=== PATIENT | male | born 1950 | race Caucasian/White ===

== ENCOUNTER 2016-04-11 11:56 | Inpatient (IN) | payer OTHER, MEDICAID ==
[~2016-04-11] VITALS: Ht 170.2 cm; Wt 57.2 kg
[~2016-04-11 11:56] MED LIST: ASPIRIN325 M2 PO; OMEGA-3 FISH1200 MG PO
[2016-04-11 11:58] VITALS: BP 135/77
--- NOTE | 2016-04-11 13:07 | NUR ---
DR. EM AT BEDSIDE
[2016-04-11] MEDS ORDERED: NACL 0.9% 1,000 ML IV ONE (13:10)
--- NOTE | 2016-04-11 13:10 | NUR ---
PATIENT PRESENTS TO ED GENERALIZED WEAKNESS X 3 MONTHS; PER SON, PT HAS BEEN LOOSING WEIGHT AND NOT EATING WELL. PT STOPS DRINKING LAST JANUARY, DENIES N/V/D; SKIN IS PINK/WARM/DRY; AAOX4 WITH EVEN AND STEADY GAIT; LUNGS CLEAR BL; HR EVEN AND REGULAR; PT DENIES ANY FEVER, CP, SOB ; PATIENT STATES PAIN OF 10/10 AT THIS TIME ON HIS FEET; PATIENT POSITIONED FOR COMFORT; HOB ELEVATED; BEDRAILS UP X2; BED DOWN. HX OF HEART ATTACK Addendum: 04/11/16 at 1350 by [email or web address] NOTED ALSO PT JAUNDICE,PT AAO
--- NOTE | 2016-04-11 13:15 | NUR ---
XRAY AT BEDSIDE
--- NOTE | 2016-04-11 13:44 | NUR ---
PT WENT FOR CT VIA [facility] AAO, SON WITH THE PT.
--- NOTE | 2016-04-11 14:10 | NUR ---
PT BACK FROM CT PT AAO,IVF ONGOING, WELL TOLERATED.
--- NOTE | 2016-04-11 14:39 | NUR ---
VITAL SIGN OBTAINED, PT AAO, NO SOB NOTED, NO DISTRESS NOTED.
--- NOTE | 2016-04-11 15:30 | NUR ---
PT WANTED TO EAT AT THIS TIME, PER DR. EM NO FOOD AT THIS TIME, PT AND FAMILY AWARE.
--- NOTE | 2016-04-11 16:36 | NUR ---
PT EYES CLOSE, NO DISTRESS NOTED, PT VERBALIZED, I AM JUST TIRED, NO SOB NOTED, VITAL SIGN STABLE.
--- NOTE | 2016-04-11 17:17 | NUR ---
PT EATING DINNER AT THIS TIME
[2016-04-11] MEDS ORDERED: ONDANSETRON 4 MG/2 ML VIAL IVP PRN (18:10)
[2016-04-11] MEDS ORDERED: ALBUMIN HUMAN 25% 50 ML IV SCH (18:10)
[2016-04-11] MEDS ORDERED: LORazepam 2 MG/ML VIAL IVP PRN (18:10)
--- NOTE | 2016-04-11 18:15 | NUR ---
REPORT CALLED TO [facility] ON [facility] AND PATIENT READIED FOR TRANSPORT.
--- NOTE | 2016-04-11 18:15 | NUR ---
PATIENT TRANSPORTED TO ROOM VIA GURNEY IN STABLE CONDITION WITH ALL BELONGINGS FAMILY AT BEDSIDE.
--- NOTE | 2016-04-11 19:30 | NUR ---
PT RECEIVED AWAKE ALERT ORIENTED SPEAKS BOTH SINHALA AND CROATIAN DENIES ANY CHEST PAIN OR ANY PAIN OR DISCOMFORT,SKIN IS INTACT WITH DRYNESS,IV TO RT FOREARM G#22 IVF INFUSING WELL.PT HAS SOME GENERALIZED WEAKENESS AND IS CURRENTLY ON FALL PRECAUTIONS AND EDUCATED TO USE THE CALL LIGHT WHEN HE NEEDS ASSISTANCE.BED ALARM KEPT ON.PLAN OF CARE DISCUSSED WITH THE PATIENT.PT VERBALIZES UNDERSTANDING.CALL LIGHT WITHIN REACH WILL CONTINUE TO MONITOR.
[2016-04-11] MEDS ORDERED: cefTRIAXone 1,000 MG VIAL ONE (19:38)
[2016-04-11] MEDS: DEXT 5% /NACL 0.9% 1,000 ML IV SCH (19:38)
[2016-04-11 20:00] VITALS: BP 126/73
[2016-04-11] MEDS: PROPRANOLOL 20 MG TAB PO SCH (20:15)
--- NOTE | 2016-04-11 20:29 | NUR ---
Patient's Plan of Care was discussed and reviewed with LOCATE TECHNICIAN: DIANA SWENSON
--- NOTE | 2016-04-11 21:41 | NUR ---
PT RESTING IN BED IN NO DISTRESS AND NO COMPLAINS OF PAIN.WILL CONTINUE TO MONITOR.
--- NOTE | 2016-04-11 23:13 | NUR ---
PT SLEEPING COMFORTABLY IN BED IN NO DISTRESS WILL CONTINUE TO MONITOR.
[2016-04-12 00:13] VITALS: BP 121/69
--- NOTE | 2016-04-12 01:15 | NUR ---
PT IS CURRENTLY RESTING IN BED SLEEPING NO PAIN OR DISCOMFORT NOTED.CALL LIGHT WITHIN REACH BED ALARM ON.
[2016-04-12 04:00] VITALS: BP 112/61
--- NOTE | 2016-04-12 04:15 | NUR ---
PT SLEEPING IN BED QUIETLY IN NO DISTRESS WILL CONTINUE TO MONITOR.CALL LIGHT WITHIN REACH.
--- NOTE | 2016-04-12 06:38 | NUR ---
PT RESTING IN BED QUIETLY SLEEPING CALL LIGHT WITHIN REACH
--- NOTE | 2016-04-12 07:10 | NUR ---
ASSUMED CONTINUITY OF CARE. NO SIGNS AND SYMPTOMS OF ACUTE DISTRESS NOTICED. INITIAL ASSESSMENT DONE. KEEP COMFORTABLE ON BED. EXPLAINED DIAGNOSIS, PLAN OF CARE, PAIN MANAGEMENT TEACHING, USE OF CALL LIGHT/BED/TV/BATHROOM. VERBALIZED UNDERSTANDING. FALL PRECAUTION APPLIED. CALL LIGHT WITHIN REACH.
--- NOTE | 2016-04-12 07:15 | NUR ---
PT STABLE REPORT ENDORSED TO RATNA NICOLE.
[2016-04-12 08:00] VITALS: BP 127/71
[2016-04-12] MEDS: PENTOXIFYLLINE 400 MG TABER PO SCH ×3 (08:05→16:33)
[2016-04-12] MEDS: SPIRONOLACTONE 50 MG TAB PO SCH (08:51)
[2016-04-12] MEDS: PROPRANOLOL 20 MG TAB PO SCH ×2 (08:51→20:09)
[2016-04-12] MEDS: PANTOPRAZOLE 40 MG INJ VIAL IVP SCH (09:02)
[2016-04-12 12:00] VITALS: BP 133/75
[2016-04-12] MEDS: DEXT 5% /NACL 0.9% 1,000 ML IV SCH ×2 (12:10→22:46)
--- NOTE | 2016-04-12 14:50 | NUR ---
PAGED DR. HERBERT AND SPOKE TO DINH REGARDING PT. K LEVEL 3.3. LEFT MESSAGE AND CALL BACK NUMBER.
[2016-04-12 16:00] VITALS: BP 121/70
[2016-04-12] MEDS ORDERED: PHYTONADIONE 10 MG/ML AMP SUBQ SCH (16:00)
[2016-04-12] MEDS ORDERED: POTASSIUM CHLORIDE 10 MEQ TABER PO SCH (16:00)
--- NOTE | 2016-04-12 19:05 | NUR ---
BEDSIDE REPORT GIVEN TO TIFFANI VALDES -EVAN. IVF INFUSING WELL. IN STABLE CONDITION.
--- NOTE | 2016-04-12 19:10 | NUR ---
RECEIVED PT SLEEPING, EASILY AROUSABLE, AAOX4, DENIES ANY PAIN, VITAL SIGNS STABLE, VOIDED FREELY PER URINAL WITH 400 ML LIGHT CHRISTOPHER COLORED URINE, JAUNDICED WITH ABDOMEN SOFT AND SLIGHTLY DISTENDED, IVF INFUSING WELL, SAFETY MEASURES IN PLACE, CALL LIGHT WITHIN REACH.
[2016-04-12 20:00] VITALS: BP 139/82
--- NOTE | 2016-04-12 20:10 | NUR ---
PT AMBULATED TO BR WITH STEADY GAIT, COMPLAINING OF NAUSEA, MEDICATED PRN WITH ZOFRAN IVP, DUE INDERAL NOT GIVEN DUE TO DECREASE HEART RATE, NEEDS ATTENDED.
--- NOTE | 2016-04-12 22:25 | NUR ---
OFFERED TO PT TO TRANSFER TO ANOTHER SINCE ROOM MATE IS NOISY, PT STATED "NO IT'S [place]."
[2016-04-13] VITALS: BP 122/60
--- NOTE | 2016-04-13 00:32 | NUR ---
PT AMBULATED TO BR WITH STEADY GAIT, VERBALIZED BM WITH REGULAR SOFT STOOL MODERATE AMOUNT, DENIES ANY PAIN, MONITORED CLOSELY.
[2016-04-13] MEDS: DEXT 5% /NACL 0.9% 1,000 ML IV SCH ×2 (02:31→13:04)
--- NOTE | 2016-04-13 03:31 | NUR ---
PT AMBULATED TO BR, VERBALIZED HAD LOOSE BM MODERATE AMOUNT, INSTRUCTED TO COLLECT STOOL TO R/O C-DIFF THE NEXT TIME HE HAD A BM, VERBALIZED UNDERSTANDING, SPECIMEN CONTAINER PROVIDED, VITAL SIGNS STABLE, SB-SR ON TELE, DENIES CHEST PAIN, NO SOB NOTED, IVF INFUSING WELL, MONITORED CLOSELY.
[2016-04-13 04:00] VITALS: BP 134/72
--- NOTE | 2016-04-13 05:10 | NUR ---
PT WITH BM, SLIGHTLY LOOSE MUCOID CONSISTENCY, SMALL AMOUNT, NOT QUALIFIED FOR C-DIFF, PROVIDED ANOTHER CONTAINER FOR COLLECTION, PT MADE AWARE.
--- NOTE | 2016-04-13 07:05 | NUR ---
RECEIVED REPORT FROM DIAMOND SAW OPERATOR EVAN NIXON. PT IS SLEEPING, A/O X 4. SKIN INTACT. AMBULATORY. RFA 1V 22G PATENT AND INTACT. LBM 04/12/16. NO S/S OF ACUTE CARDIAC/RESPIRATORY DISTRESS/DISCOMFORT. SAFETY MEASURES IN PLACE, CALL LIGHT WITHIN REACH. WILL CONTINUE PLAN OF CARE, CONTINUE TO MONITOR.
--- NOTE | 2016-04-13 07:10 | NUR ---
PT SLEEPING, NO SIGNS OF DISTRESS, REPORT GIVEN TO EVAN CRUZ FOR CONTINUITY OF CARE.
[2016-04-13 07:58] VITALS: BP 120/69
[2016-04-13] MEDS: SPIRONOLACTONE 50 MG TAB PO SCH (08:52)
[2016-04-13] MEDS: PANTOPRAZOLE 40 MG INJ VIAL IVP SCH (08:53)
[2016-04-13] MEDS: PENTOXIFYLLINE 400 MG TABER PO SCH ×3 (08:53→17:08)
[2016-04-13] MEDS: PROPRANOLOL 20 MG TAB PO SCH ×2 (08:58→20:25)
--- NOTE | 2016-04-13 10:30 | NUR ---
PT AWAKE. NO S/S OF ACUTE DISTRESS OR DISCOMFORT. CALL LIGHT WITHIN REACH. WILL CONTINUE TO MONITOR.
--- NOTE | 2016-04-13 11:17 | NUR ---
PATIENT HAS BEEN SCREENED AND CATEGORIZED HIGH NUTRITION RISK. PATIENT WILL BE SEEN WITHIN 1-2 DAYS OF ADMISSION. 04/12/16-04/13/[address]
[2016-04-13 12:00] VITALS: BP 129/78
--- NOTE | 2016-04-13 13:00 | NUR ---
ADMINISTERED PO MEDS. PT TOLERATED WELL. PT EATING LUNCH. NO S/S OF ACUTE DISTRESS OR DISCOMFORT. CALL LIGHT WITHIN REACH. WILL CONTINUE TO MONITOR.
--- NOTE | 2016-04-13 14:52 | NUR ---
04/13/16 RD INITIAL ASSESSMENT COMPLETED PLEASE REFER TO NUTRITION ASSESSMENT UNDER CARE ACTIVITY FOR ESTIMATED NUTRITIONAL NEEDS. RD RECOMMENDATIONS: 1. CONTINUE REGULAR DIET TOLERATED PER MD 2. RD TO ADD HEALTH SHAKES TID FOR ADDITIONAL 900 KCAL AND 27 GM PROTEIN TO HELP PREVENT FURTHER WEIGHT LOSS 3. RD WILL F/U 3-5 DAYS; MODERATE RISK. SARITHA ALEXANDER RD
[2016-04-13 16:00] VITALS: BP 127/74
--- NOTE | 2016-04-13 17:00 | NUR ---
PT AWAKE, EATING DINNER. PT TOLERATED PO MEDS WELL. FAMILY AT BEDSIDE. NO S/S OF ACUTE DISTRESS OR DISCOMFORT. CALL LIGHT WITHIN REACH. WILL CONTINUE TO MONITOR.
[2016-04-13] MEDS ORDERED: PHYTONADIONE 10 MG/ML AMP SUBQ SCH (17:30)
[2016-04-13] MEDS ORDERED: POTASSIUM CHLORIDE 10 MEQ TABER PO SCH (18:00)
--- NOTE | 2016-04-13 19:30 | NUR ---
ENDORSED PLAN OF CARE TO NIGHT RN. PT REMAINS IN STABLE CONDITION.
--- NOTE | 2016-04-13 19:30 | NUR ---
RECEIVED PT IN STABLE CONDITION FROM EVAN CRUZ. NO SOB, NO SIGNS OF DISTRESS. PT IS AOX4, AMBULATORY. IV TO RT FA 22G PATENT, ASYMPTOMATIC, INTACT, IVF RUNNING. PT DENIES PAIN AT THIS TIME. VS STABLE ON ROOM AIR. SKIN INTACT. ABDOMEN SLIGHTLY DISTENDED. PLAN OF CARE DISCUSSED WITH PT. SAFETY MEASURES IN PLACE. CALL LIGHT WITHIN REACH. WILL CONTINUE TO MONITOR.
[2016-04-13 20:00] VITALS: BP 122/67
--- NOTE | 2016-04-13 20:25 | NUR ---
PT TOLERATED DUE MED WELL. NO SOB, NO SIGNS OF DISTRESS. IV SITE ASYMPTOMATIC, INTACT, PATENT, IVF RUNNING. PT DENIES PAIN AT THIS TIME. PLAN OF CARE DISCUSSED WITH PT. SAFETY MEASURES IN PLACE. CALL LIGHT WITHIN REACH. WILL CONTINUE TO MONITOR.
[2016-04-13] MEDS ORDERED: ALBUMIN HUMAN 25% 50 ML IV SCH (20:35)
[2016-04-13] MEDS: FUROSEMIDE 40 MG TAB PO SCH ×2 (21:52→22:41)
--- NOTE | 2016-04-13 22:41 | NUR ---
GAVE PT LASIX AND ALBUMIN IV PER MD ORDER. PT TOLERATED MEDS WELL. NO SOB, NO SIGNS OF DISTRESS. IV SITE ASYMPTOMATIC, INTACT, PATENT, IVF RUNNING. PT DENIES PAIN AT THIS TIME. PLAN OF CARE DISCUSSED WITH PT. SAFETY MEASURES IN PLACE. CALL LIGHT WITHIN REACH. WILL CONTINUE TO MONITOR.
[2016-04-14] VITALS: BP 128/73
--- NOTE | 2016-04-14 00:07 | NUR ---
VS STABLE ON ROOM AIR. NO SOB, NO SIGNS OF DISTRESS. IV SITE ASYMPTOMATIC, INTACT, PATENT, IVF RUNNING. PT DENIES PAIN AT THIS TIME. PLAN OF CARE DISCUSSED WITH PT. SAFETY MEASURES IN PLACE. CALL LIGHT WITHIN REACH. WILL CONTINUE TO MONITOR.
--- NOTE | 2016-04-14 02:07 | NUR ---
PT ASLEEP IN BED. NO SOB, NO SIGNS OF DISTRESS. IV SITE ASYMPTOMATIC, INTACT, PATENT, IVF RUNNING. SAFETY MEASURES IN PLACE. CALL LIGHT WITHIN REACH. WILL CONTINUE TO MONITOR.
[2016-04-14] MEDS: DEXT 5% /NACL 0.9% 1,000 ML IV SCH ×2 (03:27→11:33)
[2016-04-14 04:00] VITALS: BP 116/83
--- NOTE | 2016-04-14 07:03 | NUR ---
endorsed pt in stable condition to davie garza all needs have been met at this time.
--- NOTE | 2016-04-14 07:05 | NUR ---
RECEIVED REPORT FROM TOE POUNDER RN. PT IS A/O X 4. RFA IV INTACT AND PATENT. LBM 04/13/16 SOFT STOOL. NO S/S OF ACUTE CARDIAC/RESPIRATORY DISTRESS. SAFETY MEASURES IN PLACE, CALL LIGHT WITHIN REACH. WILL CONTINUE PLAN OF CARE AND CONTINUE TO MONITOR.
[2016-04-14 08:00] VITALS: BP 119/71
[2016-04-14] MEDS: PENTOXIFYLLINE 400 MG TABER PO SCH ×3 (08:51→18:10)
[2016-04-14] MEDS: SPIRONOLACTONE 50 MG TAB PO SCH (08:51)
[2016-04-14] MEDS: FUROSEMIDE 40 MG TAB PO SCH (08:51)
[2016-04-14] MEDS: PANTOPRAZOLE 40 MG INJ VIAL IVP SCH (08:52)
[2016-04-14] MEDS: PROPRANOLOL 20 MG TAB PO SCH ×2 (09:00→20:17)
--- NOTE | 2016-04-14 10:11 | NUR ---
PT RESTING WITH EYES CLOSED. NO S/S OF ACUTE DISTRESS OR DISCOMFORT. TOLERATED AM MEDS WELL. CALL LIGHT WITHIN REACH. WILL CONTINUE TO MONITOR.
[2016-04-14 12:00] VITALS: BP 122/68
--- NOTE | 2016-04-14 12:13 | NUR ---
PT RESTING IN BED. NO S/S OF ACUTE DISTRESS. PT DENIES PAIN. IV SITE PATENT AND INTACT. CALL LIGHT WITHIN REACH. WILL CONTINUE TO MONITOR.
[2016-04-14] MEDS ORDERED: POTASSIUM CHLORIDE 10 MEQ TABER PO SCH (13:00)
[2016-04-14] MEDS ORDERED: metroNIDAZOLE 500 MG TAB PO SCH (14:15)
[2016-04-14] MEDS ORDERED: ALBUMIN HUMAN 25% 100 ML IV SCH (14:30)
--- NOTE | 2016-04-14 15:55 | NUR ---
PT SLEEPING IN BED. NO S/S OF ACUTE DISTRESS. CALL LIGHT WITHIN REACH. WILL CONTINUE TO MONITOR.
[2016-04-14 16:00] VITALS: BP 122/69
--- NOTE | 2016-04-14 19:28 | NUR ---
RECEIVED PT IN STABLE CONDITION FROM EVAN MARVIN. NO SOB, NO SIGNS OF DISTRESS. PT IS AOX4, AMBULATORY. IV TO RT FA 22G PATENT, ASYMPTOMATIC, INTACT, IVF RUNNING. PT DENIES PAIN AT THIS TIME. VS STABLE ON ROOM AIR. SKIN INTACT. ABDOMEN SLIGHTLY DISTENDED. TOOK PT OFF OF CONTACT PRECAUTIONS SINCE C-DIFF RESULT IS NEGATIVE. PLAN OF CARE DISCUSSED WITH PT. SAFETY MEASURES IN PLACE. CALL LIGHT WITHIN REACH. WILL CONTINUE TO MONITOR.
--- NOTE | 2016-04-14 19:32 | NUR ---
ENDORSED PLAN OF CARE TO NIGHT RN. PT REMAINS IN STABLE CONDITION.
[2016-04-14 20:00] VITALS: BP 118/69
[2016-04-14] MEDS: metroNIDAZOLE 500 MG TAB PO SCH (20:17)
--- NOTE | 2016-04-14 20:17 | NUR ---
PT TOLERATED DUE MEDS WELL. NO SOB, NO SIGNS OF DISTRESS. IV SITE ASYMPTOMATIC, INTACT, PATENT, IVF RUNNING. PT DENIES PAIN AT THIS TIME. PT REQUESTED MILK, GAVE PT MILK. PLAN OF CARE DISCUSSED WITH PT. SAFETY MEASURES IN PLACE. CALL LIGHT WITHIN REACH. WILL CONTINUE TO MONITOR.
[2016-04-14] MEDS ORDERED: DEXTROSE 50% 50 ML SYR IVP PRN (21:20)
[2016-04-15] VITALS: BP 118/65
[2016-04-15 04:00] VITALS: BP 122/70
--- NOTE | 2016-04-15 04:00 | NUR ---
VS STABLE. NO SOB, NO SIGNS OF DISTRESS. IV SITE ASYMPTOMATIC, INTACT, PATENT, IVF RUNNING. PT DENIES PAIN AT THIS TIME. PLAN OF CARE DISCUSSED WITH PT. SAFETY MEASURES IN PLACE. CALL LIGHT WITHIN REACH. WILL CONTINUE TO MONITOR.
[2016-04-15] MEDS: DEXT 5% /NACL 0.9% 1,000 ML IV SCH (04:15)
[2016-04-15] MEDS: metroNIDAZOLE 500 MG TAB PO SCH ×2 (04:15→12:19)
[2016-04-15] MEDS: BLOOD GLUCOSE MONITORING 1 DEV DEV FS SCH ×3 (06:28→17:28)
--- NOTE | 2016-04-15 06:31 | NUR ---
PTS BLOOD SUGAR 414, PER MD ORDER PAGED KAHN SIGN PAINTER FOR MD HERBERT TO MAKE AWARE AND FOR ORDERS. WAITING FOR CALL BACK.
--- NOTE | 2016-04-15 06:34 | NUR ---
SPOKE WITH MD KAHN. MADE AWARE OF BLOOD SUGAR VALUE. STATED TO GIVE PT 20 UNITS OF NOVOLOG INSULIN.
[2016-04-15] MEDS: INSULIN ASPART SLIDING SCALE 100 UNITS/ML VIAL SUBQ PRN ×3 (06:38→17:46)
--- NOTE | 2016-04-15 06:38 | NUR ---
GAVE PT 20 UNITS OF INSULIN PER MD ORDER. PT ASYMPTOMATIC. VS STABLE. NO SOB, NO SIGNS OF DISTRESS. IV SITE ASYMPTOMATIC, INTACT, PATENT, IVF RUNNING. PT DENIES PAIN AT THIS TIME. PLAN OF CARE DISCUSSED WITH PT. SAFETY MEASURES IN PLACE. CALL LIGHT WITHIN REACH. WILL CONTINUE TO MONITOR.
--- NOTE | 2016-04-15 07:05 | NUR ---
ENDORSED PT IN STABLE CONDITION TO EVAN GUPTA. ALL NEEDS HAVE BEEN MET AT THIS TIME. Addendum: 04/15/16 at 0717 by Bhavana Dos Santos RN ENDORSED PT TO YON, AND EVAN CRUZ.
--- NOTE | 2016-04-15 07:06 | NUR ---
RECEIVED REPORT FROM HAND PRESSER RN. PT IS SLEEPING, A/O X 4, AMBULATORY. IV INTACT. NO S/S OF ACUTE CARDIAC/RESPIRATORY DISTRESS/DISCOMFORT. SAFETY MEASURES IN PLACE. FALL RISK PRECAUTIONS IN PLACE. CALL LIGHT WITHIN REACH. WILL CONTINUE PLAN OF CARE. WILL CONTINUE TO MONITOR.
[2016-04-15 08:00] VITALS: BP 113/61
[2016-04-15] MEDS: FUROSEMIDE 40 MG TAB PO SCH (08:54)
[2016-04-15] MEDS: PENTOXIFYLLINE 400 MG TABER PO SCH ×3 (08:54→17:22)
[2016-04-15] MEDS: SPIRONOLACTONE 50 MG TAB PO SCH (08:55)
[2016-04-15] MEDS: PANTOPRAZOLE 40 MG INJ VIAL IVP SCH (08:56)
[2016-04-15] MEDS: PROPRANOLOL 20 MG TAB PO SCH (08:57)
[2016-04-15] MEDS ORDERED: GLUCOPHAGE500 MG PO (09:40)
[2016-04-15] MEDS ORDERED: PENTOXIFYL XR400 MG PO (09:40)
[2016-04-15] MEDS ORDERED: FUROSEMIDE40 M1 PO (09:40)
[2016-04-15] MEDS ORDERED: ALDACTONE50 M1 PO (09:40)
[2016-04-15] MEDS ORDERED: INDERAL20 M1 PO (09:40)
--- NOTE | 2016-04-15 10:00 | NUR ---
PER DR HERBERT, HOLD DISCHARGE UNTIL PARACENTESIS IS COMPLETE.
--- NOTE | 2016-04-15 10:45 | NUR ---
PT IS RESTING WITH EYES CLOSED. NO S/S OF ACUTE DISTRESS OR DISCOMFORT. INFORMED PT OF US GUIDED PARACENTESIS, PT VERBALIZED UNDERSTANDING AND SIGNED CONSENT. CALL LIGHT WITHIN REACH. WILL CONTINUE TO MONITOR.
[2016-04-15 12:00] VITALS: BP 113/66
--- NOTE | 2016-04-15 12:52 | NUR ---
PT RESTING, WITH EYES CLOSED. PT IS AWARE HE IS NPO DUE TO US PARACENTESIS. PT WILL EAT HIS LUNCH TRAY AFTER PROCEDURE. PT TOLERATED HIS MEDS WELL. NO S/S OF ACUTE DISTRESS OR DISCOMFORT. CALL LIGHT WITHIN REACH. WILL CONTINUE TO MONITOR.
--- NOTE | 2016-04-15 13:38 | NUR ---
CM NOTE INITIAL REVIEW FAXED TO [facility] / FAX# [phone], C: [phone]
--- NOTE | 2016-04-15 13:54 | NUR ---
PT AWAKE, EATING LUNCH, A/O X 4. NO S/S OF ACUTE DISTRESS OR DISCOMFORT. CALL LIGHT WITHIN REACH. WILL CONTINUE TO MONITOR.
[2016-04-15 15:45] VITALS: BP 108/64
--- NOTE | 2016-04-15 15:45 | NUR ---
US GUIDED PARACENTESIS COMPLETE. PT TOLERATED PROCEDURE WELL. VS STABLE. 1850ML ABD FLUID TAKEN OUT. MADE AWARE.
[2016-04-15] MEDS ORDERED: POTASSIUM CHLORIDE 10 MEQ TABER PO SCH (17:00)
--- NOTE | 2016-04-15 18:45 | NUR ---
DISCHARGE INSTRUCTIONS PROVIDED TO PT AND SON, VERBALIZED UNDERSTANDING. PT SIGNED DISCHARGE PAPERWORK, HE WAS PROVIDED A COPY. ARM BANDS REMOVED. IV REMOVED, INTACT. PT HAS NO S/S OF ACUTE DISTRESS OR DISCOMFORT. VS STABLE. PT IN STABLE CONDITION. WHEELCHAIRED PT TO FRONT LOBBY FOR FAMILY TO PICK HIM UP.
[2016-09-29] MEDS ORDERED: GLUCOPHAGE850 MG PO (10:53)
[2016-09-29] MEDS ORDERED: CULTURELLE10 Billion PO (10:53)
[2016-09-29] MEDS ORDERED: HUMALOG SL100 UNITS/ SUBQ (10:58)
[2016-09-29] MEDS ORDERED: ASPIRIN ADULT L81 M1 PO (10:58)
[2016-09-29] MEDS ORDERED: IPRATROPIUM BROM3 M1 IH (10:58)
[2016-09-29] MEDS ORDERED: PULMICORT0.25 MG/2 INH (10:58)
[2016-09-29] MEDS ORDERED: LEVEMIR100 U/ML SUBQ (10:58)
[2016-09-29] MEDS ORDERED: HUMULIN 70 U/ML10 ML SQ (10:58)
== END 2016-04-15 18:45 | disposition home or self-care (01) | DRG 441 ==
LOC: MED 11:56 → MTU 16:36
PROVIDERS: ADMIT Hospitalist; ATTEND Hospitalist
PROC: 0W9G3ZZ Drainage of Peritoneal Cavity, Percutaneous Approach (ICD-10-PCS; principal; 2016-04-15)
DX: K72.00 Acute and subacute hepatic failure without coma (principal); E41 Nutritional marasmus; K76.6 Portal hypertension; E87.1 Hypo-osmolality and hyponatremia; Z68.1 Body mass index [BMI] 19.9 or less, adult; E46 Unspecified protein-calorie malnutrition; D68.9 Coagulation defect, unspecified; K70.31 Alcoholic cirrhosis of liver with ascites; K70.9 Alcoholic liver disease, unspecified; E88.09 Other disorders of plasma-protein metabolism, not elsewhere classified; R19.7 Diarrhea, unspecified; D72.829 Elevated white blood cell count, unspecified; R62.7 Adult failure to thrive; I25.10 Atherosclerotic heart disease of native coronary artery without angina pectoris; E87.6 Hypokalemia; K81.9 Cholecystitis, unspecified; E11.9 Type 2 diabetes mellitus without complications; R74.0 Nonspecific elevation of levels of transaminase and lactic acid dehydrogenase [LDH]; F10.21 Alcohol dependence, in remission; I25.2 Old myocardial infarction; Z98.890 Other specified postprocedural states; Z79.82 Long term (current) use of aspirin; Z79.899 Other long term (current) drug therapy; Z87.891 Personal history of nicotine dependence

== ENCOUNTER 2016-09-26 19:24 | Inpatient (IN) | payer OTHER, MEDICAID ==
[~2016-09-26] VITALS: Ht 165.1 cm; Wt 48.5 kg
[~2016-09-26 19:24] MED LIST changes: +ASPI325T49 PO; -ASPIRIN325 M2 PO; +FURO40TA9 PO; +IND20 PO; +METF500T PO; -OMEGA-3 FISH1200 MG PO; +SPIR50TA PO; +[UNRECOGNIZED DRUG - CODE] PO
[2016-09-26 19:49] VITALS: BP 110/70
--- NOTE | 2016-09-26 20:09 | NUR ---
PT TAKEN TO BED 7
--- NOTE | 2016-09-26 20:19 | NUR ---
Dr. Child evaluating patient at bedside.
[2016-09-26] MEDS ORDERED: NACL 0.9% 1,000 ML IV ONE (20:30)
[2016-09-26] MEDS ORDERED: LIDOCAINE 1% 500 MG/50 ML VIAL INJ ONE (20:35)
--- NOTE | 2016-09-26 20:39 | NUR ---
PT TAKEN TO RADIOLOGY
--- NOTE | 2016-09-26 20:46 | NUR ---
BIB SISTER TO ED WITH NOT FEELING WELL, WEAKNESS, DIARRHEA, SOB, FOR 3 DAYS, CANT WALK. SKIN IS PINK/WARM/DRY; AAOX4 WITH UNSTEADY GAIT, LUNGS CLEAR BL; HR EVEN AND REGULAR; PT DENIES ANY FEVER, CP, SOB, OR COUGH AT THIS TIME; PATIENT STATES PAIN OF 9/10 AT THIS TIME; PATIENT POSITIONED FOR COMFORT; HOB ELEVATED; BEDRAILS UP X2; BED DOWN. PT LOOKS VERY PALE AND JAUNDICED
--- NOTE | 2016-09-26 20:55 | NUR ---
PT RETURN FROM RADIOLOGY
[2016-09-26] MEDS ORDERED: PIPERACILLIN/TAZOBACTAM 3.375 GM in DEXTROSE 5% 50 ML IV ONE (21:25)
[2016-09-26 21:29] LABS: APPEARANCE,URINE CLEAR (CLEAR); BILIRUBIN,URINE NEGATIVE (NEGATIVE); BLOOD, URINE NEGATIVE (NEGATIVE); COLOR,URINE YELLOW (YELLOW); LEUKOCYTE ESTERASE ,URINE NEGATIVE (NEGATIVE); NITRITE, URINE NEGATIVE (NEGATIVE); PROTEIN,URINE NEGATIVE (NEGATIVE); UGLUCOSE 3+ (NEGATIVE); UROBILINOGEN,URINE 0.2 EU/dL (0.2 - 1)
[2016-09-26 21:30] LABS: BASOPHILS # (AUTO) 0.5 K/uL (0.00-0.22); BASOPHILS % (AUTO) 4.4 % (0.0-2.0); EOSINOPHILS # (AUTO) 0.2 K/uL (0-0.4); EOSINOPHILS % (AUTO) 1.8 % (0.0-4.0); HEMATOCRIT 39.7 % (36-52); HEMOGLOBIN 13.5 g/dL (12.0-18.0); LYMPHOCYTES # (AUTO) 3.1 K/uL (2.0-11.5); LYMPHOCYTES % (AUTO) 28.5 % (20.5-51.1); MEAN CORPUSCULAR HEMOGLOBIN 32 pg (27-31); MEAN CORPUSCULAR HGB CONC 34 g/dL (33-37); MEAN CORPUSCULAR VOLUME 93 fL (80-94); MONOCYTES # (AUTO) 1.1 K/uL (0.8-1.0); MONOCYTES % (AUTO) 10.4 % (1.7-9.3); NEUTROPHILS # (AUTO) 6.1 K/uL (1.8-7.7); NEUTROPHILS % (AUTO) 54.9 % (42.2-75.2); PLATELET COUNT (AUTO) 191 K/uL (140-450); RED BLOOD CELL COUNT(AUTO) 4.28 MIL/uL (4.20-6.10); RED CELL DISTRIBUTION WIDTH 13.3 % (11.6-13.7)
[2016-09-26 21:32] LABS: BACTERIA,URINE RARE /HPF (None Seen); RBC,URINE 0-3 /HPF (0-5); SQUAMOUS EPITHELIAL CELL,UR None Seen /LPF (0-3 (FEW)); WBC,URINE 0-3 /HPF (0-5)
[2016-09-26 21:36] LABS: INR 1.2 (0.8-1.2); PARTIAL THROMBOPLASTIN TIME 30.5 secs (22-35.6); PROTHROMBIN TIME 12.4 secs (10.8-13.4)
[2016-09-26 21:40] LABS: LACTIC ACID 1.7 mmol/L (0.4-2.0)
[2016-09-26] MEDS ORDERED: PIPERACILLIN/TAZOBACTAM 3.375 GM VIAL IV ONE (21:45)
[2016-09-26 21:46] LABS: ANION GAP 7.5 (8-16); CALCIUM 7.8 mg/dL (8.5-10.1); CARBON DIOXIDE 30.3 mmol/L (21-32); POTASSIUM 3.8 mmol/L (3.5-5.1); TOTAL BILIRUBIN 0.7 mg/dL (0.0-1.0); TOTAL PROTEIN, SERUM 9.7 g/dL (6.4-8.2)
[2016-09-26] MEDS ORDERED: INSULIN HUMAN REGULAR 100 UNITS/ML 10 ML VIAL IVP ONE (21:50)
--- NOTE | 2016-09-26 21:56 | NUR ---
PT EATING HERNANDO AT THIS TIME
--- NOTE | 2016-09-26 22:07 | NUR ---
PT FINISHED EATING HIS SANDWHICH, PT AAO, NO DISTRESS NOTED, NOTED, DRYNESS ON BOTH LOWER EXTREMITIES, SOCKS APPLIED,IVF ONGOING WELL TOLERATED.
[2016-09-26] MEDS: NACL 0.9% 1,000 ML IV SCH (23:03)
[2016-09-26] MEDS ORDERED: MORPHINE SULFATE 2 MG/ML SYR IVP PRN (23:05)
[2016-09-26] MEDS ORDERED: ACETAMINOPHEN 325 MG TAB PO PRN (23:05)
[2016-09-26] MEDS ORDERED: ONDANSETRON 4 MG/2 ML VIAL IM/IVP PRN (23:05)
[2016-09-26] MEDS ORDERED: DOCUSATE SODIUM 100 MG GELCAP PO PRN (23:05)
[2016-09-26] MEDS ORDERED: HYDROcodone/APAP 7.5/325 MG 1 TAB PO PRN (23:05)
[2016-09-26] MEDS ORDERED: ALBUTEROL SULFATE/IPRATROPIU 3 ML SOL IH PRN (23:10)
[2016-09-26] MEDS ORDERED: DEXTROSE 50% 50 ML SYR IVP PRN (23:10)
--- NOTE | 2016-09-26 23:15 | NUR ---
PATIENT ADMITTED WITH ASPIRATION PNA.PATIENT IS AWAKE ALERT ORIENTED SAMI SPEAKING.SKIN IS INTACT BUT VERY DRY ESPECIALLY TO THE FEET AND LOWER LEGS AND ALSO ON HIS BUTTOCKS BUT OTHERWISE SKIN IS INTACT.PATIENT IS ABLE TO TURN AND REPOSITION BUT STATES,"I FEEL VERY WEAK."PLAN OF CARE DISCUSSED WITH THE PATIENT.VISITING HOURS DISCSSED WITH THE PATIENT AND HIS FAMILY.CALL LIGHT WITHIN REACH WILL CONTINUE TO MONITOR.
--- NOTE | 2016-09-26 23:35 | NUR ---
PT AWAKE AND ALERT, HR 70, RESP RATE 20, SAT 98% ON ROOM AIR, BREATH SOUNDS CLEAR BILATERALLY. NO DISTRESS/SOB/WHEEZING NOTED AT THIS TIME. NO INDICATION FOR HHN PRN TX. PT ALSO INSTRUCTED ON USE OF INCENTIVE SPIROMETRY, PT WAS ABLE TO ACHIEVE 1500 ML X 10 BREATHS.
--- NOTE | 2016-09-26 23:40 | NUR ---
Patient's Plan of Care was discussed and reviewed with IDENTIFICATION PRINTING MACHINE SETTER: DIANA SWENSON
[2016-09-26] MEDS ORDERED: methylPREDNISolone SS 125 MG/2 ML VIAL IVP SCH (23:45)
--- NOTE | 2016-09-26 23:57 | NUR ---
Patient will be admitted to care of . Admited to TELE. Will go to room 112A. Belongings list completed. Report to DIANA GORDON.
[2016-09-27] VITALS: BP 117/87
[2016-09-27] MEDS: NACL 0.9% 1,000 ML IV SCH ×2 (00:30→09:45)
--- NOTE | 2016-09-27 00:30 | NUR ---
PATIENT STABLE RESTING IN BD NEEDS MET WILL CONTINUE TO MONITOR.CALL LIGHT WITHIN REACH.
[2016-09-27] MEDS ORDERED: ALBUTEROL SULFATE/IPRATROPIU 3 ML SOL IH SCH (03:00)
[2016-09-27] MEDS ORDERED: ALBUTEROL 0.083% 2.5 MG/3 ML NEBU INH SCH (03:00)
[2016-09-27] MEDS ORDERED: IPRATROPIUM 0.02% 0.5 MG/2.5 ML NEBU INH SCH (03:00)
--- NOTE | 2016-09-27 03:32 | NUR ---
PATIENT STABLE RESTING IN BED IN NO DISTRESS.NO COMPLAINS OF PAIN.IVF INFUSING WELL WILL CONTINUE TO MONITOR.
[2016-09-27 04:05] VITALS: BP 122/63
[2016-09-27] MEDS ORDERED: PIPERACILLIN/TAZOBACTAM 3.375 GM VIAL IV ONE (05:03)
[2016-09-27 05:54] LABS: BASOPHILS # (AUTO) 0.2 K/uL (0.00-0.22); BASOPHILS % (AUTO) 2.2 % (0.0-2.0); EOSINOPHILS # (AUTO) 0.1 K/uL (0-0.4); EOSINOPHILS % (AUTO) 1.3 % (0.0-4.0); HEMATOCRIT 40.2 % (36-52); HEMOGLOBIN 13.3 g/dL (12.0-18.0); LYMPHOCYTES # (AUTO) 1.3 K/uL (2.0-11.5); LYMPHOCYTES % (AUTO) 13.5 % (20.5-51.1); MEAN CORPUSCULAR HEMOGLOBIN 31 pg (27-31); MEAN CORPUSCULAR HGB CONC 33 g/dL (33-37); MEAN CORPUSCULAR VOLUME 95 fL (80-94); MONOCYTES # (AUTO) 0.1 K/uL (0.8-1.0); MONOCYTES % (AUTO) 1.1 % (1.7-9.3); NEUTROPHILS # (AUTO) 7.6 K/uL (1.8-7.7); NEUTROPHILS % (AUTO) 81.9 % (42.2-75.2); PLATELET COUNT (AUTO) 185 K/uL (140-450); RED BLOOD CELL COUNT(AUTO) 4.25 MIL/uL (4.20-6.10); RED CELL DISTRIBUTION WIDTH 12.8 % (11.6-13.7)
[2016-09-27] MEDS ORDERED: PIPERACILLIN/TAZOBACTAM 3.375 GM in DEXTROSE 5% 50 ML IV SCH (06:00)
--- NOTE | 2016-09-27 06:23 | NUR ---
MD FAGAN CALLED BACK AND I INFORMED HIM OF PATIENT'S ELEVATED SUGAR OF 422. SAID TO GIVE 10 UNITS OF HUMULOG INSULIN AND TO ENDORSE TO AM SHIFT TO FOLLOW UP WITH INCOMING RESIDENT.
[2016-09-27] MEDS: BLOOD GLUCOSE MONITORING 1 DEV DEV FS SCH ×4 (06:29→20:49)
[2016-09-27 06:31] LABS: ANION GAP 8.5 (8-16); CALCIUM 7.7 mg/dL (8.5-10.1); CARBON DIOXIDE 28.5 mmol/L (21-32); CREATININE 0.7 mg/dL (0.7-1.3)
[2016-09-27 06:32] LABS: CHOL/HDL RATIO 2.6 (1-4.5); FREE T4 (FREE THYROXINE) 1.28 ng/dL (0.76-1.46); MAGNESIUM 1.7 mg/dL (1.8-2.4); THYROID STIMULATING HORMONE 2.83 uIU/mL (0.34-3.74)
--- NOTE | 2016-09-27 07:05 | NUR ---
PATIENT HAS BEEN SCREENED AND CATEGORIZED HIGH NUTRITION RISK. PATIENT WILL BE SEEN WITHIN 1-2 DAYS OF ADMISSION. 09/26/16-09/27/16 MARY KANG MS, RDN
--- NOTE | 2016-09-27 07:12 | NUR ---
RECEIVED PT IN BED. AWAKE, ALERT ORIENTEDX4. NO SOB NOTED AT THIS TIME. DENIES ANY PAIN OR DISCOMFORT AT THIS TIME. POSITIVE BOWEL SOUNDS NOTED ON FOUR QUADRANTS. PT UNSTEADY WITH AMBULATION. PT CONTINENT, DENIES ANY DISCOMFORT WITH BLADDER OR BOWEL ELIMINATION AT THIS TIME. URINAL AND BEDPAN AT BEDSIDE. SKIN INTACT. SAFETY PRECAUTION IN PLACE. CALL LIGHT WITHIN REACH.
[2016-09-27 07:13] LABS: WHITE BLOOD COUNT (AUTO) 9.3 K/uL (4.8-10.8)
--- NOTE | 2016-09-27 07:32 | NUR ---
PATIENT STABLE REPORT ENDORSED TO EVAN KHALIL AT BEDSIDE SHE WILL RESUME CARE OF THE PATIENT.
[2016-09-27] MEDS: BUDESONIDE 0.25 MG/2 ML NEBU INH SCH ×2 (07:33→19:15)
[2016-09-27] MEDS: ALBUTEROL SULFATE/IPRATROPIU 3 ML SOL IH SCH ×4 (07:34→19:15)
--- NOTE | 2016-09-27 07:47 | NUR ---
TOLERATED INCENTIVE SPIROMETRY PROCEDURE WELL WITHOUT INCIDENT ENCOURAGED PATIENT WITH ACKNOWLEDGEMENT TO USE EVERY TWO HOURS WHILE AWAKE
[2016-09-27] MEDS: methylPREDNISolone SS 125 MG/2 ML VIAL IVP SCH ×2 (07:54→15:19)
[2016-09-27 08:00] VITALS: BP 106/59
[2016-09-27 08:18] LABS: AMPHETAMINE, URINE NEG. ng/ml (NEG <=1000); BARBITURATE, URINE NEG. ng/ml (NEG <=200); BENZODIAZEPINE, URINE NEG. ng/mL (NEG <=200); CANNABINOID, URINE NEG. ng/mL (NEG <=50); COCAINE, URINE NEG. ng/mL (NEG <=300); OPIATE, URINE NEG. ng/mL (NEG <=2000); PHENCYCLIDINE SCREEN,URINE NEG. ng/mL (NEG <=25)
--- NOTE | 2016-09-27 09:08 | NUR ---
PATIENT WILL BE RESCREENED WITHIN 1-2 DAYS OF ADMISSION. NOT ENOUGH INFORMATION AVAILABLE AT THIS TIME. 09/27/16-09/28/16 MARY KANG MS, RDN
--- NOTE | 2016-09-27 09:25 | NUR ---
DR. BROOKS, CAME TO SEE PT AND MADE AWARE OF MG LEVEL 1.7 AND NA 129. AND MADE AWARE THAT PT IS DIABETIC AND NEEDS TO GET AN ORDER FOR DIET.
[2016-09-27] MEDS ORDERED: MAG SULF 2000 MG/WATER PREMIX 50 ML IV ONE (09:30)
[2016-09-27 12:00] VITALS: BP 126/69
[2016-09-27] MEDS ORDERED: INSULIN LISPRO 100 UNITS/ML VIAL SUBQ PRN (12:10)
--- NOTE | 2016-09-27 12:16 | NUR ---
DR. BROOKS MADE AWARE OF LATEST BLOOD SUGAR READING OF PT 551. WITH ORDERS MADE AND CARRIED OUT
--- NOTE | 2016-09-27 12:19 | NUR ---
PATIENT HAS BEEN RE-SCREENED AND CATEGORIZED HIGH NUTRITION RISK. PATIENT WILL BE SEEN WITHIN 1-2 DAYS OF ADMISSION. 09/26/16-09/27/16 MARY KANG MS, RDN
[2016-09-27] MEDS: PIPER/TAZO 3.375GM/D5W PREMIX 50 ML IV SCH ×2 (12:22→17:22)
[2016-09-27] MEDS: INSULIN LISPRO SLIDING SCALE 100 UNITS/ML VIAL SUBQ PRN ×3 (12:36→21:06)
--- NOTE | 2016-09-27 12:44 | NUR ---
09/27/16 RD INITIAL ASSESSMENT COMPLETED PLEASE REFER TO NUTRITION ASSESSMENT UNDER CARE ACTIVITY FOR ESTIMATED NUTRITIONAL NEEDS. RD RECOMMENDATIONS: 1. CONTINUE CURRENT DIET TOLERATED. 2. RDN TO PROVIDE DIABETIC HEALTH SHAKE WITH MEALS TID TO HELP MEET NEEDS D/T UNDERWT FOR AGE STATUS (BMI < 18.4 KG/M2; PT WITH BMI OF 17.8 KG/M2). 3. RD WILL F/U 3-5 DAYS; MODERATE RISK. MARY KANG MS, RDN
--- NOTE | 2016-09-27 13:26 | NUR ---
NEW INCENTIVE SPIROMETRY ORDER TODAY AT 1319 ORIGINAL ORDER ON 09/26/16 AT 2310 INITIAL AND FOLLOW UP PERFORMED SEWAGE RETICULATION DRAFTING OFFICER TO RE-INSTRUCT PATIENT
[2016-09-27] MEDS ORDERED: metFORMIN 500 MG TAB PO SCH (14:10)
[2016-09-27] MEDS: metFORMIN 500 MG TAB PO SCH ×2 (14:12→16:43)
[2016-09-27 16:00] VITALS: BP 139/77
--- NOTE | 2016-09-27 19:20 | NUR ---
PT KEPT CLEAN, DRY AND COMFORTABLE, NEEDS ATTENDED. ENDORSED TO NEXT SHIFT ON STABLE CONDITION FOR CONTINUITY OF CARE.
--- NOTE | 2016-09-27 19:21 | NUR ---
PATIENT IS CURRENTLY RESTING IN BED AWAKE ALERT ORIENTED DENIES PAIN AND DENIES ANY SOB AT THIS TIME.IVF INFUSING WELL IV SITE PATENT.PATIENT USED THE BEDSIDE COMMODE AND HAD A MODERATE SOFT BROWN STOOL BEDSIDE COMMODE WAS CLEANED.PATIENT IS ALSO VOIDING WELL IN THE URINAL.PATIENT CONTINUES TO BE ON FALL AND SAFETY PRECAUTIONS.EXPLAINED THAT HE NEEDS TO CALL FOR ASSISTANCE.PATIENT VERBALIZES UNDERSTANDING TO CALL WHEN HE NEEDS TO USE THE BEDSIDE COMMODE.BED ALARM ON.WILL CONTINUE TO MONITOR.
--- NOTE | 2016-09-27 19:25 | NUR ---
Patient's Plan of Care was discussed and reviewed with PRESSROOM FOREMAN: DIANA SWENSON
[2016-09-27 20:00] VITALS: BP 111/58
[2016-09-27] MEDS: LACTULOSE 20 GM/30 ML UDC PO SCH (20:50)
--- NOTE | 2016-09-27 20:51 | NUR ---
PATIENT BLOOD SUGAR CHECKED CURRENTLY READING CRITICALLY HIGH I CHECKED HIS BLOOD SUGAR WITH ANOTHER BLOOD SUGAR MACHINE AND ITS 572 MD HENRY [employer] CALLED AND I LEFT MESSAGE WITH JAYLEN FROM [employer] SHE SAID MD RIDER IS JUDGE CLERK JENNA AND SHE WILL PAGE.
--- NOTE | 2016-09-27 21:10 | NUR ---
MD RIDER CALLED BACK AND I INFORMED HIM THAT PATIENT BLOOD SUGAR READ CRITICALLY HIGH AND THEN I RECHECKED IT WITH ANOTHER BLOOD SUGAR MACHINE AND IT WAS 572 I ALSO INFORMED HIM THAT PATIENT IS ASYMPTOMATIC AND IS AWAKE AND VERY ALERT.MD RIDER SAID TO CONTINUE TO FOLLOW THE HUMALOG INSULIN SLIDING SCALE FOR BS GREATER THAN 401 AND MD RIDER SAID HE WILL LET THE RESIDENTS KNOW SO THEY CAN ORDER ANOTHER LONG ACTING INSULIN FOR THE PATIENT. SAID HE WILL TELL RESIDENTS TO PUT THE ORDERS IN.
[2016-09-28 00:14] VITALS: BP 123/70
--- NOTE | 2016-09-28 00:28 | NUR ---
I MADE ROUNDS AND RECHECKED PATIENT BLOOD SUGAR WITH ONE OF THE GLUCOMETER IT READS CRITICALLY HIGH ABOVE 600 SO I CHECKED IT AGAIN WITH ANOTHER GLUCOMETER AND I GOT A READING OF 451 PATIENT IS ASYMPTOMATIC AT THIS TIME.KAMRON FOUNTAIN MD.
--- NOTE | 2016-09-28 00:31 | NUR ---
I CALLED TIFFANIE AND MD RIDER CONTINUES TO BE NAIL STICKER FOR LINDA HE HAS BEEN PAGED BY [employer]. WILL WAIT FOR HIS CALL BACK.
[2016-09-28] MEDS: PIPER/TAZO 3.375GM/D5W PREMIX 50 ML IV SCH ×5 (00:33→23:47)
[2016-09-28] MEDS: methylPREDNISolone SS 125 MG/2 ML VIAL IVP SCH (00:33)
--- NOTE | 2016-09-28 01:05 | NUR ---
NO CALL BACK YET FROM MD RIDER SO I CALLED [employer] AGAIN I SPOKE TO JAYLEN AND SHE WILL PAGE AGAIN.WILL CONTINUE TO MONITOR THE PATIENT.
--- NOTE | 2016-09-28 01:35 | NUR ---
MD RIDER DIDN'T CALL BACK BUT IS CURRENTLY SLEEPING IN BED ASYMPTOMATIC AND BS TRENDED DOWN.WILL CONTINUE TO MONITOR.WILL CHECK THIS MORNING BLOOD SUGAR.
--- NOTE | 2016-09-28 02:40 | NUR ---
PATIENT IS SLEEPING COMFORTABLY IN BED.
[2016-09-28] MEDS: NACL 0.9% 1,000 ML IV SCH ×2 (04:43→17:54)
[2016-09-28 04:52] VITALS: BP 139/71
--- NOTE | 2016-09-28 04:55 | NUR ---
PATIENT SLEEPING IN BED IN NO DISTRESS NO COMPLAINS OF PAIN AT THIS TIME.IVF INFUSING WELL WILL CONTINUE TO MONITOR.CALL LIGHT WITHIN REACH.
[2016-09-28 05:47] LABS: HEMATOCRIT 38.8 % (36-52); HEMOGLOBIN 12.8 g/dL (12.0-18.0); MEAN CORPUSCULAR HEMOGLOBIN 32 pg (27-31); MEAN CORPUSCULAR HGB CONC 33 g/dL (33-37); MEAN CORPUSCULAR VOLUME 95 fL (80-94); PLATELET COUNT (AUTO) 194 K/uL (140-450); RED BLOOD CELL COUNT(AUTO) 4.07 MIL/uL (4.20-6.10); RED CELL DISTRIBUTION WIDTH 13.1 % (11.6-13.7); WHITE BLOOD COUNT (AUTO) 18.3 K/uL (4.8-10.8)
--- NOTE | 2016-09-28 06:05 | NUR ---
NOTED IV ON LT HAND INFILTRATED, STARTED NEW IV ON LT FOREARM, 20G, ZOSYN INFUSING WELL.
[2016-09-28] MEDS: BLOOD GLUCOSE MONITORING 1 DEV DEV FS SCH ×4 (06:09→20:55)
[2016-09-28] MEDS: INSULIN LISPRO SLIDING SCALE 100 UNITS/ML VIAL SUBQ PRN ×4 (06:13→20:58)
[2016-09-28 06:14] LABS: ALBUMIN 1.8 g/dL (3.4-5.0); ANION GAP 10.6 (8-16); CALCIUM 7.6 mg/dL (8.5-10.1); CARBON DIOXIDE 27.9 mmol/L (21-32); CREATININE 0.8 mg/dL (0.7-1.3); MAGNESIUM 1.9 mg/dL (1.8-2.4); POTASSIUM 4.5 mmol/L (3.5-5.1); TOTAL BILIRUBIN 0.7 mg/dL (0.0-1.0); TOTAL PROTEIN, SERUM 8.6 g/dL (6.4-8.2)
--- NOTE | 2016-09-28 06:26 | NUR ---
RESIDENT HAY CRAWFORD WAS INFORMED OF PATIENTS BLOOD SUGARS BEING ELEVATED AND ALSO INFORMED THAT I TRIED TO NOTIFY MD RIDER BUT HE NEVER CALLED ME BACK,I INFORMED HER THAT PATIENT WAS ASYMPTOMATIC THROUGHT THE NIGHT AND EVEN THOUGH HER BLOOD SUGAR WAS HIGH IT WAS TRENDING DOWN.
[2016-09-28 06:32] LABS: BAND % (MANUAL) 8 % (0-8); LYMPHOCYTES % (MANUAL) 6 % (20-46); MONOCYTES % (MANUAL) 4 % (5-12); NEUTROPHILS % (MANUAL) 82 (43-65)
[2016-09-28] MEDS: ALBUTEROL SULFATE/IPRATROPIU 3 ML SOL IH SCH ×4 (07:19→19:38)
[2016-09-28] MEDS: BUDESONIDE 0.25 MG/2 ML NEBU INH SCH ×2 (07:19→19:38)
--- NOTE | 2016-09-28 07:25 | NUR ---
RECEIVED PT IN BED. AWAKE. ALERT ORIENTED X4. NO SOB NOTED. DENIES ANY PAIN OR DISCOMFORT AT THIS TIME. POSITIVE BOWEL SOUNDS NOTED ON FOUR QUADRANTS. PT WITH BEDSIDE COMMODE. DENIES ANY PROBLEM WITH BOWEL OR BLADDER ELIMINATION AT THIS TIME. SAFETY PRECAUTION IN PLACE. CALL LIGHT WITHIN REACH.
--- NOTE | 2016-09-28 07:29 | NUR ---
PATIENT IS STABLE CURRENTLY RESTING IN BED REPORT ENDORSED TO EVAN KHALIL AT BEDSIDE. SHE WILL RESUME CARE OF THE PATIENT.
[2016-09-28 08:00] VITALS: BP 114/62
[2016-09-28] MEDS ORDERED: metFORMIN 500 MG TAB PO SCH (08:00)
[2016-09-28] MEDS: ASPIRIN 81 MG TAB.CHEW PO SCH (08:31)
[2016-09-28] MEDS: LACTULOSE 20 GM/30 ML UDC PO SCH ×2 (08:31→21:07)
[2016-09-28] MEDS: metFORMIN 500 MG TAB PO SCH (08:31)
[2016-09-28] MEDS: methylPREDNISolone SS 40 MG/ML VIAL IVP SCH ×2 (08:31→15:17)
[2016-09-28] MEDS: LACTOBACILLUS RHAMNOSUS GG 1 EACH CAP PO SCH (08:31)
[2016-09-28] MEDS ORDERED: INSULIN LISPRO SLIDING SCALE 100 UNITS/ML VIAL SUBQ PRN (09:20)
[2016-09-28] MEDS ORDERED: DEXTROSE 50% 50 ML SYR IVP PRN (09:20)
--- NOTE | 2016-09-28 09:29 | NUR ---
DR. BROOKS MADE AWARE OF ALBUMIN LOW AT 1.8, AND NA 133.
--- NOTE | 2016-09-28 10:12 | NUR ---
PHYSICAL THERAPIST CAME TO SEE PT.
[2016-09-28 10:24] LABS: T3 UPTAKE 32 % (24-39); T4 (THYROXINE) 5.3 ug/dL (4.5-12.0)
--- NOTE | 2016-09-28 10:26 | NUR ---
FAXED INITIAL REVIEW TO [facility] [phone] PHONE [phone] TRACKING #[id number]
[2016-09-28 12:00] VITALS: BP 131/75
--- NOTE | 2016-09-28 12:00 | NUR ---
LATEST BLOOD SUGAR READING PER GLUCOMETER WAS >600. INSULIN HUMOLOG 12 UNITS WAS GIVEN ORDERED FOR BS >400. WILL LET DR. BROOKS KNOW OF LATEST BLOOD SUGAR. PT IS NOT SHOWING ANY SIGNS AND SYMPTOMS OF HYPERGLYCEMIA. NO SOB, DENIES ANY PAIN OR DISCOMFORT AT THIS TIME.
--- NOTE | 2016-09-28 13:11 | NUR ---
DR. BROOKS MADE AWARE OF THE HIGH BLOOD SUGAR READING OF PT. HE SAID HE WILL GIVE AN ORDER.
[2016-09-28] MEDS ORDERED: INSULIN LISPRO 100 UNITS/ML VIAL SUBQ SCH (13:26)
[2016-09-28] MEDS: INSULIN DETEMIR 100 UNITS/ML 10 ML VIAL SUBQ SCH (13:29)
--- NOTE | 2016-09-28 13:51 | NUR ---
SPOKE WITH CHERYL FROM [facility] [phone]. I GAVE HIM VERBAL REPORT. I SAID I HAD THE PT EVAL AND I FAXED HIM THE EVAL. HE SAID IF PATIENT WILL NEED SNF, TRY [facility] [phone] OR [facility]. I GAVE HIM THE PHONE NUMBER FOR THE RESIDENT FOR TO DR. WOODARD.
[2016-09-28 16:00] VITALS: BP 120/72
[2016-09-28] MEDS: metFORMIN 850 MG TAB PO SCH (16:56)
--- NOTE | 2016-09-28 19:35 | NUR ---
PT KEPT CLEAN, DRY AND COMFORTABLE. NEEDS ATTENDED. ENDORSED TO NEXT SHIFT ON STABLE CONDITION FOR CONTINUITY OF CARE. DENIES ANY DISCOMFORT AT THIS TIME.
--- NOTE | 2016-09-28 19:36 | NUR ---
RECEIVED PT FROM REMI RN PT [place] SPEAKER AAOX4 AMBULATES WITH; MANDOL[employer] REPAIR PERSON IV ON LEFT FA INFUSING WELL ON TELEMETRY SR DENIES ANY PAIN AT THIS TIME INITIAL ASSESSMENT DONE
[2016-09-28 20:00] VITALS: BP 133/69
[2016-09-28] MEDS: INSULIN NPH HUM/REG INSULIN HM 100 UNIT/ML 10 ML VIAL SQ SCH (21:01)
--- NOTE | 2016-09-28 21:30 | NUR ---
BLOOD SUGAR TEST 387 WAS COVERAGE PROTOCOL
[2016-09-29 00:01] VITALS: BP 145/84
--- NOTE | 2016-09-29 00:48 | NUR ---
PT SLEEPING WELL NOT DISTRESS NOTED ON TELEMETRY SR REPOSITIONED Q2H
[2016-09-29 04:00] VITALS: BP 143/71
--- NOTE | 2016-09-29 04:00 | NUR ---
SPONGE BATH GIVEN, LINEN CHANGED NOT DISTRESS NOTED ON TELEMETRY SR
[2016-09-29] MEDS: INSULIN LISPRO SLIDING SCALE 100 UNITS/ML VIAL SUBQ PRN ×2 (05:53→12:07)
[2016-09-29] MEDS: PIPER/TAZO 3.375GM/D5W PREMIX 50 ML IV SCH ×2 (05:55→11:20)
[2016-09-29] MEDS: BLOOD GLUCOSE MONITORING 1 DEV DEV FS SCH ×2 (05:57→11:41)
[2016-09-29] MEDS: NACL 0.9% 1,000 ML IV SCH (06:12)
[2016-09-29 06:34] LABS: BASOPHILS # (AUTO) 0.3 K/uL (0.00-0.22); BASOPHILS % (AUTO) 2.2 % (0.0-2.0); EOSINOPHILS # (AUTO) 0.2 K/uL (0-0.4); EOSINOPHILS % (AUTO) 1.2 % (0.0-4.0); HEMATOCRIT 35.4 % (36-52); HEMOGLOBIN 12.1 g/dL (12.0-18.0); LYMPHOCYTES # (AUTO) 2.7 K/uL (2.0-11.5); LYMPHOCYTES % (AUTO) 16.9 % (20.5-51.1); MEAN CORPUSCULAR HEMOGLOBIN 32 pg (27-31); MEAN CORPUSCULAR HGB CONC 34 g/dL (33-37); MEAN CORPUSCULAR VOLUME 95 fL (80-94); MONOCYTES # (AUTO) 1.3 K/uL (0.8-1.0); MONOCYTES % (AUTO) 8.1 % (1.7-9.3); NEUTROPHILS # (AUTO) 11.4 K/uL (1.8-7.7); NEUTROPHILS % (AUTO) 71.6 % (42.2-75.2); PLATELET COUNT (AUTO) 176 K/uL (140-450); RED BLOOD CELL COUNT(AUTO) 3.72 MIL/uL (4.20-6.10); RED CELL DISTRIBUTION WIDTH 13.4 % (11.6-13.7)
--- NOTE | 2016-09-29 06:45 | NUR ---
BLOOD SUGAR TEST 260 [employer]AGE PROTOCOL
[2016-09-29] MEDS: ALBUTEROL SULFATE/IPRATROPIU 3 ML SOL IH SCH ×2 (06:56→11:21)
[2016-09-29] MEDS: BUDESONIDE 0.25 MG/2 ML NEBU INH SCH (06:56)
[2016-09-29 07:00] LABS: ANION GAP 7.5 (8-16); CALCIUM 7.5 mg/dL (8.5-10.1); CARBON DIOXIDE 28.9 mmol/L (21-32); CREATININE 0.7 mg/dL (0.7-1.3); POTASSIUM 3.4 mmol/L (3.5-5.1)
--- NOTE | 2016-09-29 07:20 | NUR ---
RECEIVED REPORT FROM NIGHT NURSE, PT IS AAOX4, ON ROOM AIR. SKIN INTACT, IV TO LEFT FA 20G INFUSING WELL, INITIAL ASSESSMENT COMPLETED, REVIEWED PLAN OF CARE WITH PT, ALL SAFETY PRECAUTIONS MET. CALL LIGHT WITHIN REACH. WILL CONTINUE TO MONITOR.
[2016-09-29 07:27] LABS: WHITE BLOOD COUNT (AUTO) 15.9 K/uL (4.8-10.8)
[2016-09-29 08:01] VITALS: BP 130/72
[2016-09-29] MEDS: LACTULOSE 20 GM/30 ML UDC PO SCH (08:33)
[2016-09-29] MEDS: metFORMIN 850 MG TAB PO SCH (08:33)
[2016-09-29] MEDS: ASPIRIN 81 MG TAB.CHEW PO SCH (08:33)
[2016-09-29] MEDS: LACTOBACILLUS RHAMNOSUS GG 1 EACH CAP PO SCH ×2 (08:33→08:37)
[2016-09-29] MEDS: INSULIN NPH HUM/REG INSULIN HM 100 UNIT/ML 10 ML VIAL SQ SCH (08:34)
[2016-09-29] MEDS: INSULIN DETEMIR 100 UNITS/ML 10 ML VIAL SUBQ SCH (08:35)
--- NOTE | 2016-09-29 08:39 | NUR ---
DUE MEDICATION GIVEN PT TOLERATED WELL. ALL NEEDS MET. WILL CONTINUE TO MONITOR.
[2016-09-29] MEDS ORDERED: KCL 20 MEQ/WATER INJ PREMIX 100 ML IV SCH (09:00)
--- NOTE | 2016-09-29 10:28 | NUR ---
SS NOTE: PER BRIANNA FROM [facility] ([address] [place], [place] P: [phone]), THEY ARE ABLE TO ACCEPT PT AND PT CAN GO TO ROOM [address]A UNDER DR[address] SCHWARTZ. RICHIE PUGH AND DR. BROOKS MADE AWARE.
[2016-09-29] MEDS ORDERED: LACT10CA PO (10:53)
[2016-09-29] MEDS ORDERED: METF850T PO (10:53)
[2016-09-29] MEDS ORDERED: ASPI81CT27 PO (10:58)
[2016-09-29] MEDS ORDERED: PUL.25N INH (10:58)
[2016-09-29] MEDS ORDERED: INSU10SU2 SQ (10:58)
[2016-09-29] MEDS ORDERED: LEVEMIR SUBQ (10:58)
[2016-09-29] MEDS ORDERED: HUMSLIDE SUBQ (10:58)
[2016-09-29] MEDS ORDERED: IPRA3AMP IH (10:58)
--- NOTE | 2016-09-29 11:02 | NUR ---
FAXED CONCURRENT REVIEW TO [facility] [phone] PHONE CHERYL [phone] I CALLED [facility] AND SPOKE WITH CHERYL AND INFORMED HIM THAT [facility] WILL BE ACCEPTING THIS PATIENT. HE SAID HE WOULD ARRANGE TRANSPORT AND WILL LET ME KNOW WHEN THE PATIENT WILL BE PICKED UP. HEAVENLY GORDON, CHARGE NURSE AWARE.
[2016-09-29 11:04] LABS: HEMOGLOBIN A1C >15.5 % (4.8-5.6)
--- NOTE | 2016-09-29 11:13 | NUR ---
DISCUSSED TRANSFER PLAN WITH PT, PT VERBALIZED UNDERSTANDING
--- NOTE | 2016-09-29 12:09 | NUR ---
RECEIVED A CALL FROM CHERYL FROM [facility] ASKING ABOUT WHERE THE PATIENT WILL GO UPON DISCHARGE FROM [facility]. I WENT AND SPOKE WITH THE PATIENT AND HE SAID HE WAS HOMELESS. I ASKED HIM IF HE COULD GO HOME WITH HIS SISTER AND HE SAID HE DIDN'T KNOW. HE WAS UNABLE TO GET HER ON THE PHONE. I CALLED THE SISTER OD MCDERMOTT AND SHE SAID SHE HAS NO ROOM FOR HIM AND CANNOT TAKE HIM. SHE SAYS HE DOES GET SOME MONEY THROUGH [employer]. I CALLED CHERYL FROM [facility] AND INFORMED HIM. HE SAID HE WOULD INFORM THE [facility]. HE SAID THAT [facility] WILL SUTURE POLISHER THE PATIENT AT 1:30P.M. IZABELA GORDON AWARE.
--- NOTE | 2016-09-29 12:25 | NUR ---
REPORT GIVEN TO BERONICA SEGUNDO AT [facility], NOTIFIED SHAHID MCDERMOTT (SISTER) [phone] OF PT TRAGERING PLAN, SHE VERBALIZED UNDERSTANDING.
--- NOTE | 2016-09-29 13:11 | NUR ---
[facility] IN TO DOPE WORKER PT, PT SIGNED ALL DISCHARGE PAPERWORK, DISCHARGE EDUCATION GIVEN. ALL PERSONAL BELONGINGS WITH PT.
--- NOTE | 2016-09-29 13:44 | NUR ---
PT NOTES [phone] SPOKE W/ RN REGARDING PATIENT. RN SATED THAT PATIENT WILL BE DISCHARGED FROM THE HOSPITAL IN A FEW MINUTES. 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 PRIMARY THERAPIST AWARE. PVE Addendum: 09/29/16 at 1617 by Amber Woods PT PHYSICAL THERAPY CO-SIGN The Physical Therapy Progress Notes documented by Air Deodorizer Servicer have been reviewed. Reviewed/Co-Signed by: Ambre Woods PT Documentation Done by:MARLEEN MONSON PTA
== END 2016-09-29 13:15 | DRG 177 ==
LOC: MED 19:24 → MTU 23:10
PROVIDERS: ADMIT Student in an Organized Health Care Education/Training Program; ATTEND Student in an Organized Health Care Education/Training Program
DX: J69.0 Pneumonitis due to inhalation of food and vomit (principal); J96.01 Acute respiratory failure with hypoxia; E43 Unspecified severe protein-calorie malnutrition; N17.0 Acute kidney failure with tubular necrosis; E11.00 Type 2 diabetes mellitus with hyperosmolarity without nonketotic hyperglycemic-hyperosmolar coma (NKHHC); D68.59 Other primary thrombophilia; E87.1 Hypo-osmolality and hyponatremia; Z68.1 Body mass index [BMI] 19.9 or less, adult; I50.30 Unspecified diastolic (congestive) heart failure; E11.65 Type 2 diabetes mellitus with hyperglycemia; E83.42 Hypomagnesemia; K70.30 Alcoholic cirrhosis of liver without ascites; I25.10 Atherosclerotic heart disease of native coronary artery without angina pectoris; K80.20 Calculus of gallbladder without cholecystitis without obstruction; I10 Essential (primary) hypertension; Z53.20 Procedure and treatment not carried out because of patient's decision for unspecified reasons; W11.XXXA Fall on and from ladder, initial encounter; Y93.89 Activity, other specified; Y92.89 Other specified places as the place of occurrence of the external cause; Y99.8 Other external cause status; Z79.899 Other long term (current) drug therapy; Z90.49 Acquired absence of other specified parts of digestive tract; I25.2 Old myocardial infarction; Z80.0 Family history of malignant neoplasm of digestive organs; Z80.8 Family history of malignant neoplasm of other organs or systems; Z71.3 Dietary counseling and surveillance; Z59.0 Homelessness; R74.0 Nonspecific elevation of levels of transaminase and lactic acid dehydrogenase [LDH]; Z79.84 Long term (current) use of oral hypoglycemic drugs
CPT/HCPCS: 36415; 71010; 80048; 80053; 80305; 81001; 82140; 82150; 82948; 83036; 83605; 83690; 83735; 83880; 84100; 84436; 84439; 84443; 84479; 84484; 85025; 85610; 85730; 87040; 87081; 87086; 93005; 93925; 93970; 94640; 96365; 96375; 97110; 99285; J1815; J2543; J2920; J2930; J3475; J3480; J7030; J7060; J7620; J7626; Q0092